=== PATIENT | female | born 1955 | race Caucasian/White ===

== ENCOUNTER 2016-03-23 12:11 | Day surgery (SDC) | payer BC, OTHER ==
[2016-03-23 13:08] VITALS: BP 142/90; PULSE 95; RESP 14; TEMP 98.6
--- NOTE | 2016-03-23 15:17 | P.PCN ---
Date of Procedure: 03/23/16 Preoperative Diagnosis: thyroid nodule Pathology: none sent Operative Findings: unable to reliably sample lesion left lower thyroid, exam aborted
--- NOTE | 2016-03-23 16:35 | US ---
Discontinued ultrasound fine-needle aspiration thyroid nodule, interventional radiology consult HISTORY: Thyroid nodule Comparison to prior ultrasound thyroid dated 09 April 2015. Thyroid nodule has not changed in the interval. Physical exam shows the patient in no apparent distress. The neck is supple and nontender, there is n o jugular venous distention or evident lesion. Following informed consent, discussion of the risks and benefits of performing fine needle aspiration thyroid nodule, patient elected to proceed. The overlying skin was prepped and draped. Lidocaine use d for local anesthesia. Attempt to pass the needle into the subcentimeter thyroid nodules unsuccessfu l. The exam was aborted. IMPRESSION: Aborted thyroid fine-needle aspiration
== END 2016-03-23 14:15 | disposition home or self-care (01) ==
LOC: RADPROMAIN 12:11
PROVIDERS: ATTEND Internal Medicine Hematology & Oncology
DX: E04.1 Nontoxic single thyroid nodule (principal); Z53.8 Procedure and treatment not carried out for other reasons
CPT/HCPCS: 76536

== ENCOUNTER → 2016-05-09 | Outpatient (CLI) | payer BC, OTHER ==
--- NOTE | 2016-05-09 12:34 | BD ---
EXAMINATION TYPE: MG DEXA axial skeleton. DATE OF EXAM: 05/09/2016 11:13 AM Comparison: DEXA bone scan May 06, 2014. CLINICAL HISTORY: Height: 66 inches Weight: 175 pounds FRAX RISK QUESTIONS: Alcohol (3 or more units per day): no Family History (Parent hip fracture): no Glucocorticoids (More than 3mos): no (Ex: prednisone, prednisolone, methylprednisolone, dexamethasone, and hydrocortisone). History of Fracture in Adulthood: shoulder Secondary Osteoporosis: 1. Type 1 Diabetes: no 2. Hyperthyroidism: no 3. Menopause before 45: no 4. Malnutrition: no 5. Chronic liver disease: no Rheumatoid Arthritis: no Current Tobacco Use: no RISK FACTORS HISTORY OF: History of Fracture: yes, shoulder When: about 20 years ago Family History of Osteoporosis: no Drink Alcohol: very very very rarely Active: yes Diet low in dairy products/other sources of calcium: no Postmenopausal woman: yes Take estrogen and/or progesterone medications: not now How long: hormonal contraceptives over 15 years Lost more than 2 inches in height since high school: no Frequent falls: no Poor Health: no Hyperparathyroidism: no Adrenal Insufficiency: no MEDICATIONS: Prednisone or other steroids: no Thyroid Medications: no Osteoporosis Medications: no Additional Medications: Arimidex over 5 years ; blood pressure meds Additional History: breast CA age 55 EXAM MEASUREMENTS: Bone mineral densitometry was performed using the [employer] System. Bone mineral density as measured about the Lumbar spine is: ----- L1-L4(G/cm2): 0.882 T Score Values are as follows: ----- L2: -2.4 ----- L3: -3.0 ----- L4: -2.3 ----- L1-L4: -2.5 Bone mineral density has: Decreased -7.2% since study of: 05/06/2014 Bone mineral density about the R hip (g/cm2): 0.844 Bone mineral density about the L hip (g/cm2): 0.797 T Score values are as follows: -----R Neck: -1.4 -----L Neck: -1.7 -----R Intertrochanter: -1.3 -----L Intertrochanter: -1.7 Bone mineral density has: Decreased -2.6% since study of: 05/06/2014 IMPRESSION: Osteopenia (T Score between -2.5 and -1 as noted by T score values in the low back and both hips camelia ins present. Bone density is decreased or diminished from prior exam.There remains slightly increased risk of fracture and the patient may be considered for treatment. Re-Screen 1-2 years. NOTE: T-SCORE=SD OF THE YOUNG ADULT MEAN.
== END | disposition home or self-care (01) ==
LOC: RADBDWWP 10:40
PROVIDERS: ATTEND Internal Medicine Hematology & Oncology
DX: M85.88 Other specified disorders of bone density and structure, other site (principal); C50.311 Malignant neoplasm of lower-inner quadrant of right female breast
CPT/HCPCS: 77080

== ENCOUNTER → 2016-10-06 | Outpatient (CLI) | payer OTHER ==
--- NOTE | 2016-10-06 09:41 | MM ---
Reason for exam: history of breast cancer, mastectomy. Last mammogram was performed 1 year ago. History: Patient is postmenopausal and has history of breast cancer at age 55. Family history of breast cancer in maternal aunt and breast cancer in mother at age 79. Mastectomy of the right breast, January 10, 2011. Malignant right mammotome panel of the right breast, December 17, 2010. Taking antineoplastic for 5 years beginning at age 55. Taking other hormone. Physical Findings: Nurse did not find any significant physical abnormalities on exam. MG 3D Diag Mammo W/Cad LT CC and MLO view(s) were taken of the left breast. Prior study comparison: October 05, 2015, left breast MG 3d diag mammo w/cad LT. October 03, 2014, left breast MG diagnostic mammo LT w CAD. October 02, 2013, left breast MG diagnostic mammo LT w CAD. December 24, 2012, left diagnostic mammogram w/CAD. There are scattered fibroglandular densities. No significant changes when compared with prior studies. ASSESSMENT: Negative, BI-RAD 1 RECOMMENDATION: Follow-up diagnostic mammogram of the left breast in 1 year.
--- NOTE | 2016-10-06 11:14 | US ---
EXAMINATION TYPE: US thyroid st tissue head/neck DATE OF EXAM: 10/06/2016 COMPARISON: 10/05/2015 CLINICAL HISTORY: 60-year-old female R22.0 swelling in neck. Follow up up nodules. TECHNIQUE: Multiple sonographic images of the thyroid gland are obtained. FINDINGS: GLAND SIZE: Right Lobe: 4.8 x 2.2 x 1.5 cm Overall Parenchyma: homogenous Left Lobe: 4.6 x 1.6 x 2.1 cm Overall Parenchyma: homogeneous Isthmus Thickness: 0.6 cm NODULES RIGHT: # of nodules measured on right: 0 LEFT: # of nodules measured on left: 1 1. 0.6 X 0.4 x 0.4 cm hypoechoic solid nodule at the lower pole with well-defined margins. This no dule is taller than wide and shows intranodular vascularity. Prior size: 0.6 x 0.3 x 0.3 cm ISTHMUS: # of nodules measured in the isthmus: 0 Bilateral neck scanned, no evidence of lymphadenopathy. IMPRESSION: Stable small 6 mm nodule on the left. The thyroid gland measures at the upper limits of normal in siz e.
== END | disposition home or self-care (01) ==
LOC: RADMAMWWP 08:43
PROVIDERS: ATTEND Internal Medicine Hematology & Oncology
DX: C50.311 Malignant neoplasm of lower-inner quadrant of right female breast (principal); E04.1 Nontoxic single thyroid nodule
CPT/HCPCS: 76536; G0206; G0279

== ENCOUNTER → 2017-10-09 | Outpatient (CLI) | payer OTHER ==
--- NOTE | 2017-10-09 13:12 | US ---
EXAMINATION TYPE: US thyroid st tissue head/neck DATE OF EXAM: 10/09/2017 COMPARISON: Thyroid ultrasound October 06, 2016 CLINICAL HISTORY: Z85.3 Personal hx breast CA E04.1 Thyroid nodule. Hx of thyroid nodules. No thyroi d meds. No hx of bx. GLAND SIZE: Right Lobe: 4.7 x 2.1 x 2.0 cm Overall Parenchyma: homogenous Left Lobe: 4.6 x 1.8 x 2.1 cm Overall Parenchyma: homogeneous Isthmus Thickness: 0.7 cm NODULES RIGHT: # of nodules measured on right: 0 LEFT: # of nodules measured on left: 1 1. 0.4 X 0.4 x 0.3 cm hypoechoic solid nodule at the lower pole with well-defined margins. This no dule is taller than wide and shows intranodular vascularity. Prior size: 0.6 x 0.4 x 0.4 cm ISTHMUS: # of nodules measured in the isthmus: 0 Bilateral neck scanned, no evidence of lymphadenopathy. There is redemonstration of normal size thyroid with stable small left-sided thyroid nodule. No new n odules are evident. IMPRESSION: Overall stable findings, no new suspicious nodules are seen.
--- NOTE | 2017-10-10 14:14 | MM ---
Reason for exam: additional evaluation requested from prior study. Last mammogram was performed 1 year ago. History: Patient is postmenopausal and has history of breast cancer at age 55. Family history of breast cancer in maternal aunt and breast cancer in mother at age 79. Mastectomy of the right breast, January 10, 2011. Malignant right mammotome panel of the right breast, December 17, 2010. Took hormonal contraceptives for 25 years. Taking antineoplastic for 6 years beginning at age 55. Taking other hormone. Physical Findings: Nurse did not find any significant physical abnormalities on exam. MG 3D Diag Mammo W/Cad LT CC, MLO, and ML view(s) were taken of the left breast. Prior study comparison: October 06, 2016, left breast MG 3d diag mammo w/cad LT. October 05, 2015, left breast MG 3d diag mammo w/cad LT. October 03, 2014, left breast MG diagnostic mammo LT w CAD. The breast tissue is heterogeneously dense. This may lower the sensitivity of mammography. There is a benign round calcification in the left breast. No discrete abnormality. These results were verbally communicated with the patient and result sheet given to the patient on . ASSESSMENT: Benign, BI-RAD 2 RECOMMENDATION: Follow-up diagnostic mammogram of the left breast in 1 year.
== END | disposition home or self-care (01) ==
LOC: RADUSWWP 12:16
PROVIDERS: ATTEND Internal Medicine Hematology & Oncology
DX: Z08 Encounter for follow-up examination after completed treatment for malignant neoplasm (principal); Z85.3 Personal history of malignant neoplasm of breast; E04.1 Nontoxic single thyroid nodule
CPT/HCPCS: 76536; 77061; 77065

== ENCOUNTER → 2018-10-10 | Outpatient (CLI) | payer OTHER, BC ==
--- NOTE | 2018-10-10 13:54 | US ---
EXAMINATION TYPE: US thyroid st tissue head/neck DATE OF EXAM: 10/10/2018 COMPARISON: 2018 CLINICAL HISTORY: E04.1 THYROID NODULE. GLAND SIZE: Right Lobe: 5.5 x 2.1 x 2.0 cm Overall Parenchyma: homogenous Left Lobe: 4.3 x 2.1 x 1.4 cm Overall Parenchyma: homogeneous Isthmus Thickness: 0.6 cm NODULES RIGHT: # of nodules measured on right: 1 1. 0.4 X 0.2 x 0.4 cm mixed nodule at the lower pole with well-defined margins; . This nodule is w ider than tall and shows intranodular vascularity. Prior size: no prior LEFT: # of nodules measured on left: 1 1. 0.4 X 0.6 x 0.4 cm mixed nodule at the lower pole with well-defined margins; . This nodule is w ider than tall and shows intranodular vascularity. Prior size: 0.4 x 0.4 x 0.3 cm prior; 2017:0.6 x 0.4 x 0.4 ISTHMUS: # of nodules measured in the isthmus: 0 Bilateral neck scanned, no evidence of lymphadenopathy. IMPRESSION: Bilateral nonenlarging subcentimeter nodules.
--- NOTE | 2018-10-10 14:16 | MM ---
Reason for exam: additional evaluation requested from prior study. Last mammogram was performed 1 year ago. History: Patient is postmenopausal and has history of breast cancer at age 55. Family history of breast cancer in maternal aunt and breast cancer in mother at age 79. Mastectomy of the right breast, January 10, 2011. Malignant right mammotome panel of the right breast, December 17, 2010. Took hormonal contraceptives for 25 years. Taking antineoplastic for 6 years beginning at age 55. Taking other hormone. Physical Findings: Nurse did not find any significant physical abnormalities on exam. MG 3D Diag Mammo W/Cad LT CC and MLO view(s) were taken of the left breast. Prior study comparison: October 09, 2017, left breast MG 3d diag mammo w/cad LT. October 06, 2016, left breast MG 3d diag mammo w/cad LT. There is chronic nodularity in the left breast. No significant new findings when compared with previous films. These results were verbally communicated with the patient and result sheet given to the patient on 10/10/18. ASSESSMENT: Benign, BI-RAD 2 RECOMMENDATION: Follow-up diagnostic mammogram of the left breast in 1 year.
--- NOTE | 2018-10-12 17:34 | BD ---
EXAMINATION TYPE: Axial Bone Density DATE OF EXAM: 10/10/2018 COMPARISON: 05/09/2016 CLINICAL HISTORY: Height: 65.7 IN Weight: 171 LBS FRAX RISK QUESTIONS: History of Fracture in Adulthood: YES FINGER AGE 62 RISK FACTORS HISTORY OF: History of Wrist Fracture: YES LT WRIST When: AGE 13 Active: YES Postmenopausal woman: AGE 47 MEDICATIONS: Osteoporosis Medications: YES Which medication: Fosamax How Lon MONTHS Additional Medications: FOSAMAX, VIT D, ARIMIDEX,BLOOD PRESSURE MEDS,BABY ASPIRIN Additional History: BREAST CANCER EXAM MEASUREMENTS: Bone mineral densitometry was performed using the [employer] System. Bone mineral density as measured about the Lumbar spine is: ----- L1-L4(G/cm2): 0.943 T Score Values are as follows: ----- L2: -1.8 ----- L3: -2.3 ----- L4: -1.9 ----- L1-L4: -2.0 Bone mineral density has: Increased 7.0% since study of: 05/09/2016 Bone mineral density about the R hip (g/cm2): 0.877 Bone mineral density about the L hip (g/cm2): 0.821 T Score values are as follows: -----R Neck: -1.2 -----L Neck: -1.6 -----R Total: -1.1 -----L Total: -1.2 Bone mineral density has: Increased 3.2% since study of: 05/09/2016 IMPRESSION: Osteopenia (T Score between -2.5 and -1). There is slightly increased risk of fracture and the patient may be considered for treatment. Re-Screen 2-5 years. NOTE: T-SCORE=SD OF THE YOUNG ADULT MEAN.
== END | disposition home or self-care (01) ==
LOC: RADMAMWWP 13:09
PROVIDERS: ATTEND Internal Medicine Hematology & Oncology
DX: C50.511 Malignant neoplasm of lower-outer quadrant of right female breast (principal); E04.1 Nontoxic single thyroid nodule; M85.80 Other specified disorders of bone density and structure, unspecified site; Z79.890 Hormone replacement therapy; Z85.3 Personal history of malignant neoplasm of breast
CPT/HCPCS: 76536; 77061; 77065; 77080

== ENCOUNTER → 2019-04-24 | Outpatient (CLI) | payer OTHER ==
--- NOTE | 2019-04-24 10:21 | XR ---
EXAMINATION TYPE: XR chest 2V DATE OF EXAM: 04/24/2019 COMPARISON: NONE TECHNIQUE: PA and lateral views submitted. HISTORY: Breast cancer FINDINGS: The lungs are clear and there is no pneumothorax, pleural effusion, or focal pneumonia. Postsurgica l changes are seen overlying the right breast and axilla. There are calcified lymph nodes in the hilu m. No overt failure. Heart size normal. Degenerative changes of the spine. IMPRESSION: 1. No acute process.
--- NOTE | 2019-04-24 14:15 | NM ---
EXAMINATION TYPE: NM bone scan whole body DATE OF EXAM: 04/24/2019 COMPARISON: NONE HISTORY: Breast cancer Delayed whole-body scanning was performed following the injection of 24.1 mCi Tc 99m MDP. Images acq uired 3 hours post injection. FINDINGS: Nonspecific uptake involving the sternoclavicular joints greater on the left likely post ar thritic. Abnormal uptake involving the feet is compatible with post arthritic change. IMPRESSION: 1. No diagnostic evidence of metastases. 2. Abnormal uptake involving the sternoclavicular joints and feet are more typical of arthritic kidd es.
== END | disposition home or self-care (01) ==
LOC: RADNMMAIN 10:03
PROVIDERS: ATTEND Internal Medicine Hematology & Oncology
DX: C50.311 Malignant neoplasm of lower-inner quadrant of right female breast (principal); R93.6 Abnormal findings on diagnostic imaging of limbs; M25.519 Pain in unspecified shoulder
CPT/HCPCS: 71046; 78306; A9503

== ENCOUNTER → 2019-10-15 | Outpatient (CLI) | payer OTHER ==
--- NOTE | 2019-10-15 10:24 | MM ---
Reason for exam: additional evaluation requested from prior study. Last mammogram was performed 1 year ago. History: Patient is postmenopausal and has history of breast cancer at age 55. Family history of breast cancer in maternal aunt and breast cancer in mother at age 79. Mastectomy of the right breast, January 10, 2011. Malignant right mammotome panel of the right breast, December 17, 2010. Took hormonal contraceptives for 25 years. Taking antineoplastic for 6 years beginning at age 55. Taking other hormone. Physical Findings: Nurse did not find any significant physical abnormalities on exam. MG 3D Diag Mammo W/Cad LT CC and MLO view(s) were taken of the left breast. Prior study comparison: October 10, 2018, left breast MG 3d diag mammo w/cad LT. October 09, 2017, left breast MG 3d diag mammo w/cad LT. The breast tissue is heterogeneously dense. This may lower the sensitivity of mammography. Stable benign calcifications. There is no discrete abnormality. No significant new findings when compared with previous films. These results were verbally communicated with the patient and result sheet given to the patient on 10/15/19. ASSESSMENT: Benign, BI-RAD 2 RECOMMENDATION: Follow-up diagnostic mammogram of the left breast in 1 year.
== END | disposition home or self-care (01) ==
LOC: RADMAMWWP 09:48
PROVIDERS: ATTEND Internal Medicine Hematology & Oncology
DX: Z08 Encounter for follow-up examination after completed treatment for malignant neoplasm (principal); Z85.3 Personal history of malignant neoplasm of breast; Z90.11 Acquired absence of right breast and nipple
CPT/HCPCS: 77061; 77065

== ENCOUNTER → 2020-10-19 | Outpatient (CLI) | payer BC, OTHER ==
--- NOTE | 2020-10-19 13:30 | US ---
EXAMINATION TYPE: US thyroid st tissue head/neck DATE OF EXAM: 10/19/2020 COMPARISON: Multiple ultrasounds, most recent 10/10/18 CLINICAL HISTORY: E04.1 THYROID NODULE. GLAND SIZE: Right Lobe: 6.0 x 2.4 x 1.6 cm Overall Parenchyma: homogenous Left Lobe: 5.2 x 2.1 x 1.9 cm Overall Parenchyma: heterogeneous Isthmus Thickness: 1.0 cm NODULES RIGHT: # of nodules measured on right: 1 1. 0.5 X 0.5 x 0.4 cm, lower mid, solid or almost completely solid, hypoechoic nodule, which is wid er than tall, with smooth margins, without echogenic foci. Prior size: 0.4 x 0.2 x 0.4 cm LEFT: # of nodules measured on left: 1 1. 0.7 X 0.4 x 0.4 cm, lower mid, solid or almost completely solid, hypoechoic nodule, which is wid er than tall, with smooth margins, without echogenic foci. Prior size: 0.4 x 0.6 x 0.4 cm ISTHMUS: # of nodules measured in the isthmus: 0 Bilateral neck scanned, no evidence of lymphadenopathy. IMPRESSION: Nonspecific subcentimeter nodularity.
--- NOTE | 2020-10-20 10:11 | MM ---
Reason for exam: additional evaluation requested from prior study. Last mammogram was performed 1 year ago. History: Patient is postmenopausal and has history of breast cancer at age 55. Family history of breast cancer in maternal aunt and breast cancer in mother at age 79. Mastectomy of the right breast, January 10, 2011. Malignant right mammotome panel of the right breast, December 17, 2010. Took hormonal contraceptives for 25 years. Taking antineoplastic for 6 years beginning at age 55. Taking other hormone. Physical Findings: Nurse did not find any significant physical abnormalities on exam. MG 3D Diag Mammo W/Cad LT Spot compression CC, spot compression MLO, and XCCL view(s) were taken of the left breast. Prior study comparison: October 15, 2019, left breast MG 3d diag mammo w/cad LT. October 10, 2018, left breast MG 3d diag mammo w/cad LT. The breast tissue is heterogeneously dense. This may lower the sensitivity of mammography. Stable benign calcifications. There is no discrete abnormality including area of concern. These results were verbally communicated with the patient and result sheet given to the patient on 10/19/20. ASSESSMENT: Benign, BI-RAD 2 RECOMMENDATION: Follow-up diagnostic mammogram of the left breast in 1 year.
--- NOTE | 2020-10-20 17:08 | BD ---
EXAMINATION TYPE: Axial Bone Density DATE OF EXAM: 10/19/2020 COMPARISON: 10/10/2018 CLINICAL HISTORY: Height: 65.2 IN Weight: 175 LBS RISK FACTORS HISTORY OF: History of Wrist Fracture: YES LT FX AGE 13 Active: YES Postmenopausal woman: AGE 53 Take estrogen and/or progesterone medications: NOT NOW How long: TOOK CONTROL FOR 25 YEARS MEDICATIONS: Osteoporosis Medications: NOT NOW Which medication: PT DOES NOT KNOW How Lon YEAR Additional Medications: VIT D, BLOOD PRESSURE MEDS, ANASTRAZOLE, B12, Additional History: BREAST CANCER EXAM MEASUREMENTS: Bone mineral densitometry was performed using the [employer] System. Bone mineral density as measured about the Lumbar spine is: ----- L1-L4(G/cm2): 0.938 T Score Values are as follows: ----- L2: -1.9 ----- L3: -2.0 ----- L4: -2.2 ----- L1-L4: -2.0 Bone mineral density has: Decreased -0.5% since study of: 10/10/2018 Bone mineral density about the R hip (g/cm2): 0.860 Bone mineral density about the L hip (g/cm2): 0.839 T Score values are as follows: -----R Neck: -1.3 -----L Neck: -1.4 -----R Total: -1.0 -----L Total: -1.1 Bone mineral density has: Increased 1.0% since study of: 10/10/2018 IMPRESSION: Osteopenia (T Score between -2.5 and -1). There is slightly increased risk of fracture and the patient may be considered for treatment. Re-Screen 2-5 years. NOTE: T-SCORE=SD OF THE YOUNG ADULT MEAN.
== END | disposition home or self-care (01) ==
LOC: RADUSWWP 12:12
PROVIDERS: ATTEND Internal Medicine Hematology & Oncology
DX: E04.2 Nontoxic multinodular goiter (principal); M85.89 Other specified disorders of bone density and structure, multiple sites; R92.1 Mammographic calcification found on diagnostic imaging of breast; Z78.0 Asymptomatic menopausal state; Z85.3 Personal history of malignant neoplasm of breast; Z80.3 Family history of malignant neoplasm of breast; Z79.3 Long term (current) use of hormonal contraceptives
CPT/HCPCS: 76536; 77061; 77065; 77080

== ENCOUNTER → 2020-11-11 | Day surgery (SDC) | payer BC, OTHER ==
[2020-11-06 11:44] VITALS: BMI 28.2
[~2020-11-11] MED LIST: LACTATED RINGERS 1,000 ML IV SCH; LIDOCAINE 1% (10MG/ML) FOR IV START INTRADERMA ONE; MIDAZOLAM 2 MG/2 ML VIAL ONE; PROPOFOL 10 MG/ML 20 ML VIAL IV ONE; fentaNYL (PF) 50 MCG/ML 2 ML AMP ONE
[2020-11-11 08:47] VITALS: TEMP 97
--- NOTE | 2020-11-11 09:05 | P.PCN ---
Date of Procedure: 11/11/20 Procedure(s) Performed: BRIEF HISTORY: Patient is a 65-year-old pleasant white female scheduled for an elective colonoscopy as a part of screening for colorectal neoplasia. PROCEDURE PERFORMED: Colonoscopy. PREOPERATIVE DIAGNOSIS: Screening for colon cancer. IV sedation per Anesthesia. PROCEDURE: After informed consent was obtained, the patient, was brought into the endoscopy unit. IV sedation was administered by Anesthesia under continuous monitoring. Digital rectal examination was normal. Initially the Olympus CF-160 flexible video colonoscope was then inserted in the rectum, gradually advanced into the cecum without any difficulty. Careful examination was performed as the scope was gradually being withdrawn. Ileocecal valve and the appendiceal orifice were visualized and appeared normal. Prep was excellent. Mucosa of the cecum, ascending colon, transverse colon, descending colon, sigmoid colon, and rectum appeared normal. Retroflexion was performed in the rectum and no lesions were seen. The patient tolerated the procedure well. IMPRESSION: Normal-appearing colon from rectum to cecum with no evidence of colorectal neoplasia. RECOMMENDATIONS: Findings of this examination were discussed with the patient as well as a family.. She was advised to have a repeat screening colonoscopy in 10 years
[2020-11-11 09:10] VITALS: RESP 16
[2020-11-11 09:26] VITALS: BP 126/80; PULSE 84
== END ==
LOC: ORWHC2ENDO 08:04
PROVIDERS: ATTEND Internal Medicine Gastroenterology
DX: Z12.11 Encounter for screening for malignant neoplasm of colon (principal); I10 Essential (primary) hypertension; Z79.899 Other long term (current) drug therapy; Z85.3 Personal history of malignant neoplasm of breast
CPT/HCPCS: G0121; J2250; J3010; J2704

== ENCOUNTER → 2021-06-23 | Outpatient (CLI) | payer OTHER ==
--- NOTE | 2021-06-23 12:46 | MM ---
Reason for exam: clinical finding. Last mammogram was performed 8 months ago. History: Patient is postmenopausal and has history of breast cancer at age 55. Family history of breast cancer in maternal aunt and breast cancer in mother at age 79. Mastectomy of the right breast, January 10, 2011. Malignant right mammotome panel of the right breast, December 17, 2010. Took hormonal contraceptives for 25 years. Taking antineoplastic for 6 years beginning at age 55. Taking other hormone. Indicated problem(s): palpable abnormality in the left breast. Physical Findings: A clinical breast exam by your physician is recommended on an annual basis and results should be correlated with mammographic findings. MG 3D Diag Mammo W/Cad LT CC and MLO view(s) were taken of the left breast. Prior study comparison: October 19, 2020, left breast MG 3d diag mammo w/cad LT. October 15, 2019, left breast MG 3d diag mammo w/cad LT. There are scattered fibroglandular densities. There is no discrete abnormality including area of concern. Area of concern is edge or out of field of view. See outside ultrasound axilla for those results. No significant new findings when compared with previous films. Results were given to the patient verbally at the time of the exam. ASSESSMENT: Benign, BI-RAD 2 RECOMMENDATION: Routine screening mammogram of both breasts in 4 months. Back on schedule. Manage on a clinical basis with regard to left axilla.
== END | disposition home or self-care (01) ==
LOC: RADMAMWWP 11:02
PROVIDERS: ATTEND Physician Assistant
DX: R92.8 Other abnormal and inconclusive findings on diagnostic imaging of breast (principal); Z85.3 Personal history of malignant neoplasm of breast; Z78.0 Asymptomatic menopausal state; Z80.3 Family history of malignant neoplasm of breast
CPT/HCPCS: 77061; 77065

== ENCOUNTER → 2021-10-22 | Outpatient (CLI) | payer OTHER ==
--- NOTE | 2021-10-22 13:21 | MM ---
Reason for Exam: Follow-up at short interval from prior study. Last screening mammogram was performed 4 month(s) ago. Patient History: Menarche at age 16. First Full-Term at age 21. Postmenopausal. Breast cancer, age 55. Patient used Hormonal Contraceptives for 25 years. 01/10/2011, Mastectomy on the Right side. 12/17/2010, Malignant Core Biopsy on the right side. Maternal aunt had breast cancer. Mother had breast cancer, age 79. Prior Study Comparison: 12/06/2008 Screening Mammogram, [facility]. 11/11/2009 Screening Mammogram, [facility]. 11/18/2010 Screening Mammogram, [facility]. 10/05/2015 Left Diagnostic Mammogram, [facility]. 10/06/2016 Left Diagnostic Mammogram, [facility]. 10/09/2017 Left Diagnostic Mammogram, [facility]. 10/10/2018 Left Diagnostic Mammogram, [facility]. 10/15/2019 Left Diagnostic Mammogram, [facility]. 10/19/2020 Left Diagnostic Mammogram, [facility]. 06/23/2021 Left Diagnostic Mammogram, [facility]. Tissue Density: Left: There are scattered fibroglandular densities. Findings: Analyzed By CAD. No significant interval change. Benign spherical calcification remains present. No suspicious groups of microcalcifications, spiculated or lobular masses, architectural distortion or other secondary signs of malignancy are mammographically apparent. Overall Assessment: Benign, BI-RAD 2 Management: Screening Mammogram of the left breast in 1 year. A negative mammogram report should not preclude additional follow up of suspicious palpable abnormalities. Patient should continue monthly self breast exam. A clinical breast exam by your physician is recommended on an annual basis and results should be correlated with mammographic findings. Electronically signed and approved by: To Julien D.O. Radiologis
== END | disposition home or self-care (01) ==
LOC: RADMAMWWP 11:48
PROVIDERS: ATTEND Internal Medicine Hematology & Oncology
DX: Z78.0 Asymptomatic menopausal state (principal); Z85.3 Personal history of malignant neoplasm of breast; Z80.3 Family history of malignant neoplasm of breast
CPT/HCPCS: 77061; 77065

== ENCOUNTER → 2023-10-27 | Outpatient (CLI) | payer OTHER ==
--- NOTE | 2023-10-27 10:31 | MM ---
Reason for Exam: Hx of breast cancer, mastectomy. Last screening mammogram was performed 12 month(s) ago. Patient History: Menarche at age 16. First Full-Term at age 21. Postmenopausal. Patient has history of breast feeding. Breast cancer, right, age 55. Patient used Hormonal Contraceptives for 25 years. 2010, Mastectomy on the Right side. 01/10/2011, Mastectomy on the Right side. 12/17/2010, Malignant Core Biopsy on the right side. Maternal aunt had breast cancer. Mother had breast cancer, age 79. Tissue Density: Left: There are scattered areas of fibroglandular density. Findings: Analyzed By CAD. Unchanged central outer asymmetric density on the CC view middle depth. Adjacent benign oil cyst calcification also unchanged. On the MLO view, subtle 5 mm circumscribed nodularity which appears hypodense on additional compression views favoring a benign etiology. Further ultrasound evaluation recommended. Not clearly identified on the cc view. Overall Assessment: Incomplete: need additional imaging evaluation, BI-RAD 0 Management: Diagnostic Breast Ultrasound of the left breast. Electronically signed and approved by: Christen Sutton M.D. Radiologist
--- NOTE | 2023-10-27 10:53 | USB ---
Reason for Exam: Additional evaluation requested from prior study. Patient History: Menarche at age 16. First Full-Term at age 21. Postmenopausal. Patient has history of breast feeding. Breast cancer, right, age 55. Patient used Hormonal Contraceptives for 25 years. 2010, Mastectomy on the Right side. 01/10/2011, Mastectomy on the Right side. 12/17/2010, Malignant Core Biopsy on the right side. Maternal aunt had breast cancer, age 90. Mother had breast cancer, age 79. Technique: Method: Targeted. Prior Study Comparison: 06/23/2021 Left Diagnostic Mammogram, [facility]. 10/22/2021 Left MG 3D diag mammo w/cad LT, [facility]. 10/25/2022 Left MG 3D diag mammo w/cad LT, [facility]. Findings: The periareolar of the left breast, the axilla of the left breast and the retroareolar of the left breast were scanned. Targeted subareolar, periareolar ultrasound including scanning of the axilla. Mild scattered ectasia is demonstrated. No suspicious solid or cystic lesion or axillary lymphadenopathy. Precautionary 6 month follow-up recommended. Overall Assessment: Probably benign, BI-RAD 3 Management: Diagnostic Mammogram of the left breast in 6 months. A clinical breast exam by your physician is recommended on an annual basis and results should be correlated with mammographic findings. This exam should not preclude additional follow-up of suspicious palpable abnormalities. Results were given to the patient verbally at the time of exam. Electronically signed and approved by: Christen Sutton M.D. Radiologist
== END | disposition home or self-care (01) ==
LOC: RADMAMWWP 09:36
PROVIDERS: ATTEND Internal Medicine Hematology & Oncology
DX: C50.311 Malignant neoplasm of lower-inner quadrant of right female breast
CPT/HCPCS: 77061; 77065

== ENCOUNTER → 2024-04-26 | Outpatient (CLI) | payer OTHER ==
--- NOTE | 2024-04-26 11:20 | MM ---
Reason for Exam: Follow-up at short interval from prior study. Last screening mammogram was performed 6 month(s) ago. Patient History: Menarche at age 16. First Full-Term at age 21. Postmenopausal. Patient has history of breast feeding. Breast cancer, right, age 55. Patient used Hormonal Contraceptives for 25 years. 2010, Mastectomy on the Right side. 01/10/2011, Mastectomy on the Right side. 12/17/2010, Malignant Core Biopsy on the right side. Maternal aunt had breast cancer, age 90. Mother had breast cancer, age 79. Prior Study Comparison: 10/22/2021 Left MG 3D diag mammo w/cad LT, [facility]. 10/25/2022 Left MG 3D diag mammo w/cad LT, [facility]. 10/27/2023 Left MG 3D diag mammo w/cad LT, [facility]. Tissue Density: Left: There are scattered areas of fibroglandular density. Findings: Analyzed By CAD. 5 mm nodular asymmetry subareolar left MLO view anterior depth remains unchanged for 6 months. Ongoing short interval follow-up recommended to demonstrate at least 2 years of stability. The lateral focal asymmetry in the middle depth also remains unchanged from older priors. No significant change from prior exams. Overall Assessment: Probably benign, BI-RAD 3 Management: Diagnostic Mammogram of the left breast in 6 months. For a total one-year follow-up left breast finding. Results were given to the patient verbally at the time of exam. Patient should continue monthly self-breast exams. A clinical breast exam by your physician is recommended on an annual basis. This exam should not preclude additional follow-up of suspicious palpable abnormalities. [facility], , 04/26/2024 11:17 AM. Electronically signed and approved by: Christen Sutton M.D. Radiologist
== END | disposition home or self-care (01) ==
LOC: RADMAMWWP 10:49
PROVIDERS: ATTEND Internal Medicine Hematology & Oncology
DX: E04.1 Nontoxic single thyroid nodule (principal); M85.9 Disorder of bone density and structure, unspecified; R92.323 Mammographic fibroglandular density, bilateral breasts; F41.9 Anxiety disorder, unspecified; C50.311 Malignant neoplasm of lower-inner quadrant of right female breast
CPT/HCPCS: 77061; 77065